=== PATIENT | male | born 1955 | race Caucasian/White ===

== ENCOUNTER → 2023-10-23 08:29 | Outpatient (REF) | payer MEDICARE, OTHER, SELFPAY | LOC: HWRAD 08:29 | PROVIDERS: ATTENDING PHYSICIAN Registered Nurse Oncology; FAMILY PHYSICIAN Family Medicine | DX: C7A.8 Other malignant neuroendocrine tumors (principal) | CPT/HCPCS: 71260; 74177; Q9967 ==

== ENCOUNTER → 2023-12-24 08:15 | Outpatient (REF) | payer MEDICARE, OTHER, SELFPAY | LOC: HWRAD 08:15 | PROVIDERS: ATTENDING PHYSICIAN Registered Nurse Oncology; FAMILY PHYSICIAN Family Medicine | DX: C7A.8 Other malignant neuroendocrine tumors (principal) | CPT/HCPCS: 71260; 74177; Q9967 ==

== ENCOUNTER 2024-04-15 00:38 | Observation (INO) | payer MEDICARE, OTHER, SELFPAY ==
[2024-04-14 18:19] VITALS: BP 131/79
--- NOTE | 2024-04-14 19:26 | ED.GENMED ---
History of Present Illness
General
Chief Complaint: Bowel Problem
Source: patient
Exam Limitations: none
Time Seen by Provider: 04/14/24 18:44
History of Present Illness
History of Present Illness:
This is a 68 year old male that comes in with c/o constipation. States that he has not had a BM in the past 1.5 weeks. State that he has tried enemas, stool softeners and his has tried removing some to the stool. States that he gets radiation
IV treatments every 8 weeks. States that you don't eat after them but he has just started to eat again and he can't go. States that he feels Dizzy when he tried to push. States that sometimes the stool just drips out. Denies any fever, chills,
chest pain, SOB, abd pain, nausea, vomiting, headache, urinary burning.
Past History
Past History
ED Past Medical History: Cancer (Neuroendorcine Cancer), HTN, Hypercholesterolemia and Other (Eczema)
ED Past Surgical History: Appendectomy, Cholecystectomy and Other (Whipple procedure. Splenectomy, )
Social History
Tobacco: Former smoker
Alcohol: None
Personal:
Living: with family
Employment: Employed
Review of Systems
Review of Systems
All Other Systems: ROS reviewed and negative except as documented in HPI and ROS
Constitutional: Reports no symptoms; Denies fever or chills
EENT: Reports no symptoms
Respiratory: Reports no symptoms; Denies cough or trouble breathing
Cardiac: Reports no symptoms; Denies chest pain
ABD/GI: Reports constipated; Denies abdominal pain, nausea, vomiting or diarrhea
: Reports no symptoms; Denies dysuria, frequency or urgency
Musculoskeletal: Reports no symptoms
Skin: Reports no symptoms
Neurological: Denies dizzy (when pushes to have a BM) or headache
Psychiatric: Reports no symptoms
Phy Exam
General Physical Exam
General Presentation: no apparent distress
General age: appears stated age
General Skin: warm and dry
General Habitus: normal
General Mental: alert
General Hydration: dry mucous membranes
ENT Exam
ENT Exam: TM's normal, pharynx normal and neck supple
Eye Exam
Eye Exam: EOMI
Cardiovascular Exam
Cardiovascular Exam: regular rate/rhythm and normal peripheral pulses
Pulmonary Exam
Pulmonary Exam: lungs clear, no respiratory distress, no rales, chest non tender, no crackles, no rhonchi, no wheezing and no cough
Gastrointestinal Exam
Gastrointestinal Exam: soft, no organomegaly, no pulsatile mass, non distended and tender (hypoactive bowel sounds, Slight LLQ tenderness with palpation)
Musculoskeletal Exam
Musculoskeletal Exam: full ROM and edema (+2 pitting edema)
Skin Exam
Skin Exam: normal color, warm/dry, no petechia and other (Eczema all over body, )
Psychiatric Exam
Psychiatric Exam: normal mood/affect
Course
Orders/Labs/Results
Orders:
Orders
04/14/24 19:25
0.9% Sodium Chloride 1000 ml [Nss] 1,000 ml IV BOLUS
Iohexol [Omnipaque] See Protocol PO NOW STA
04/14/24 19:26
CT Abd/pel W Iv And Oral Contr Urgent
Comment:
Reason For Exam: Constipation, Left sided tenderness
04/14/24 19:57
Complete Blood Count/With Diff Urgent
Comprehensive Metabolic Panel Urgent
Abnormal Lab Results
04/14/24
19:57
WBC 13.3 H 10^3/uL
(4.8-10.8)
RBC 3.75 L 10^6/uL
(4.70-6.10)
Hgb 11.3 L g/dL
(13.0-18.0)
Hct 33.1 L %
(39.0-52.0)
RDW 15.0 H %
(11.5-14.5)
Abs Immat Gran (auto) 0.1 H 10^3/uL
(0-0.05)
Absolute Neuts (auto) 11.9 H 10^3/uL
(1.4-6.5)
Absolute Lymphs (auto) 0.6 L 10^3/uL
(1.2-3.4)
Absolute Monos (auto) 0.7 H 10^3/uL
(0.1-0.6)
Neutrophils % 89.2 H %
(42.2-75.2)
Lymphocytes % 4.7 L %
(20.5-51.1)
Creatinine 0.4 L mg/dL
(0.7-1.3)
Glucose 218 H mg/dl
(70-99)
Total Protein 5.4 L g/dl
(6.3-8.2)
Albumin 3.2 L g/dl
(3.5-5.0)
04/14/24 19:57
04/14/24 19:57
Leukocytosis, H/h slightly low. Hyperglycemia, total protein low. Albumin slightly low. Lipase normal 125
Vital Signs
Initial and Last Documented VS:
Initial Vital Signs
Temp Pulse Resp BP Pulse Ox
97.6 F 102 18 131/79 96
04/14/24 18:19 04/14/24 18:19 04/14/24 18:19 04/14/24 18:19 04/14/24 18:19
Last Documented Vital Signs
Temp Pulse Resp BP Pulse Ox
97.6 F 90 18 138/71 97
04/14/24 18:19 04/14/24 20:00 04/14/24 20:00 04/14/24 20:00 04/14/24 20:00
MDM/Problems Addressed
Differential Diagnosis Includes:
constipation,
MDM/Problems Addressed:
This is a 68 year old male that comes in with c/o constipation. States that he has not had a BM in the past 1.5 weeks. Patient has had Radiation IV therapy every 8 weeks.
Will get labs and CT scan.
Back into see patient. Explained that his CT shows several things. There is some inflammation in the upper abd in the stomach that could be gastritis or a developing ulcer. There is also constipation and Proctitis with possible developing abscess.
Will admit patient and start on IV antibiotics. Hospitalist notified.
Chronic conditions affecting care: Cancer
Acute Exacerbation and/or Progression of Chronic Illness: Cancer
*Radiology
Radiology exam reviewed: radiology read reviewed (CT night hawk-Inflammatory changes in the right upper quadrante near the distal stomach and proximal duodenum, suggesting gastritis and duodenitis or occult peptic ulcer disease. Large amount of
solid stool in the colon from the cecum to the splenic flexure. Inflammatory changes of the rectum, ), all reviewed NAD by ED Provider (CT cont-suggestive or proctitis. Trace loculated fluid in the perianal soft tissues, possible representing a
developing abscess. Ventral hernias containing small bowel, without evidence for associated complication. Redemonstrated metastatic disease in the liver. Changes of distal pancreatectomy and ) and other (CT cont- splenectomy. Small cystic appearing
lesion again seen in the uncinate process of the pancreas. )
*Pulse Oximetry
Patient hypoxic: no
*EKG
Interpreted by ED Provider?: NA
Rate: EKG- N/A
*French Teacher Interpretation
Rate: French Teacher- N/A
*Critical Care Note
Total Time (30-74mins, 75-104mins- exclusive of procedures): Not Applicable
ED Attending Note
-
Portions of this chart may have been created with voice recognition software.� Occasional wrong word or��sound alike� substitutions may have occurred due to the inherent limitations of voice recognition software.
Discharge Plan
Departure
Patient Disposition: Admit
Date of Disposition: 04/14/24
Time of Disposition: 23:59
Admit to: Med/Surg
Presentation/result/management discussed w/ accepting MD/DO: Hospitalist
Patient with high blood pressure during this ER visit?: Yes
Condition: Good
Covid-19: Not Applicable
Discharge Problem:
Proctitis with developing abscess, Gastritis Vs Pepcic ulcer , Acute constipation
Prescriptions:
No Action
multivitamin [Multi-Day] 1 EACH tablet
1 ea PO DAILY
aspirin [Adult Low Dose Aspirin] 81 MG tablet,delayed release (DR/EC)
81 mg PO DAILY
simvastatin 40 MG tablet
40 mg PO DAILY
lisinopril-hydrochlorothiazide 1 EACH tablet
1 ea PO DAILY
Referrals:
Lilly Kumar DO [Family Provider] -
Interventions
Interventions:
*Risk Screen - Suicide Last Done: 04/14/24 18:19
*General Assessment Last Done: 04/14/24 18:19
*Neglect/Abuse Screening Last Done: 04/14/24 18:19
ED- Fall Risk Assessment Last Done: 04/14/24 21:43
*ED COVID-19 Vaccine History Last Done: 04/14/24 18:19
KZ-Kvhwzx-Ozuefvcjfp Assessment Last Done: 04/14/24 19:35
Discharge Date and Time
Print Language: TURKISH
[2024-04-14 19:35] VITALS: BMI 23.4
[2024-04-14] MEDS: OMNIPAQUE 50 ML PO (19:37)
[2024-04-14] MEDS: NSS 1000 IV (19:58)
[2024-04-14 20:00] VITALS: BP 138/71
[2024-04-14 20:15] LABS: % Basophils 0.3 % (0-2); % Immature Granulocytes 0.5 % (0-0.5); % Lymphocytes 4.7 % (20.5-51.1); % Monocytes 5.3 % (1.7-9.3); % Neutrophils 89.2 % (42.2-75.2); Absolute Immature Granulocytes 0.1 10^3/uL (0-0.05); Absolute Lymphocytes 0.6 10^3/uL (1.2-3.4); Absolute Monocytes 0.7 10^3/uL (0.1-0.6); Absolute Neutrophils 11.9 10^3/uL (1.4-6.5); Hematocrit 33.1 % (39.0-52.0); Hemoglobin 11.3 g/dL (13.0-18.0); Mean Corp Hgb Conc. 34.1 g/dL (33.0-37.0); Mean Corpuscular Hgb 30.1 pg (27.0-31.0); Mean Corpuscular Volume 88.3 fL (80.0-94.0); Mean Platelet Volume 9.9 fL (7.4-10.4); Nucleated Red Blood Cells % 0 % (-); Platelet Count 304 10^3/uL (130-400); Red Blood Cell Count 3.75 10^6/uL (4.70-6.10); White Blood Cell Count 13.3 10^3/uL (4.8-10.8)
[2024-04-14 20:29] LABS: ALT (SGPT) 22 U/L (0-50); AST (SGOT) 30 U/L (17-59); Albumin 3.2 g/dl (3.5-5.0); Alkaline Phosphatase 99 U/L (38-126); Blood Urea Nitrogen 16 mg/dl (9-20); Calcium 9.6 mg/dl (8.4-10.2); Carbon Dioxide 25 mmol/L (22-30); Chloride 106 mmol/L (98-107); Estimated Creatinine Clearance 110 ml/min; Glucose 218 mg/dl (70-99); Potassium 4.4 mmol/L (3.5-5.1); Sodium 139 mmol/L (135-145); Total Bilirubin 0.6 mg/dl (0.2-1.3); Total Protein 5.4 g/dl (6.3-8.2); eGFR > 60.00
[2024-04-15] MEDS: PROTONIX IV 40 MG IV (00:11)
[2024-04-15] MEDS: ZOSYN 50 IV (00:12)
--- NOTE | 2024-04-15 00:30 | HPS.HSE ---
Family Physician
-
Family Physician: Lilly Kumar
Chief Complaint
-
Constipation
History of Present Illness
This is a 68-year-old male with history of neuroendocrine tumor involving the liver with status post partial resection of the pancreas and removal of the gallbladder several years ago and is currently on Lutathera therapy who comes in with history
of about 2 weeks of worsening constipation. He does have a history of constipation in the past for which he has been intermittently on laxatives.
Patient reports that he had his last dose of the chemotherapy (Lutathera) on February 27 with next dose 8 weeks after that. He reports initially having a decreased appetite but now reports in the last 4 weeks he has had normal appetite. He has unable
to tolerate p.o. despite the constipation. He reports that he last had a bowel movement about a week ago. He reports some discomfort with attempted bowel movement. Today's spouse attempted disimpaction and was able to remove a small amount of
stool in that way. However he still felt some discomfort and decided come to the emergency department. He had also tried enema at home but it was not successful due to lack of space for placement.
Patient denies any nausea or vomiting. He denies any abdominal pain at rest. He denies having any fevers or chills. He reports that he has had worsening of his eczema secondary to his chemo but otherwise denies any other intercurrent illness.
Denies opioid use.
On arrival in the emergency department he was afebrile, hemodynamically stable with normal oxygen saturation and well-appearing. He had a mild leukocytosis to 13,000 with a normal platelet count and CBC. Chemistries are within normal limits.
A CT of the abdomen pelvis showed constipation without obstruction with a moderate to large amount of fecal burden starting from the cecum to the sigmoid colon. There was mild proctitis. He did have known liver lesions as well as a supra umbilical
hernia without obstruction or incarceration. A [facility] read shows some discrepancy with more significant proctitis and possibly early abscess. Patient was given Zosyn in the emergency department.
There was an attempted disimpaction but the immediate vault was empty.
Medical History
Past Medical History
Past Medical History: Reports Cancer (Neuroendocrine tumor ) and HTN
Additional Past Medical History:
ECZEMA
Past Surgical History: Reports Cholecystectomy and Other (Partial pancreatectomy)
Social History
Tobacco: Non-smoker
Alcohol: None
Drug: None
Personal:
Living: With Family
Employment: Employed
Family History
Family History: Not pertinent
Allergies / Home Medications
Allergies reflects when Allergies were last updated in [facility].
Home Medications with original date entered in [facility]
Allergy/Medication List:
Allergies
Allergy/AdvReac Type Severity Reaction Status Date / Time
No Known Allergies Allergy Unverified 11/22/15 16:53
Home Medications
aspirin 81 mg tablet,delayed release (Adult Low Dose Aspirin) 81 mg PO DAILY 11/22/15
lisinopril 20 mg-hydrochlorothiazide 25 mg tablet 1 ea PO DAILY 11/22/15
multivitamin (Multi-Day tablet) 1 ea PO DAILY 11/22/15
simvastatin 40 mg tablet 40 mg PO DAILY 11/22/15
Review of Systems
-
History Source: Patient
Constitutional: Reports No Symptoms
EENT: Reports No Symptoms
Respiratory: Reports No Symptoms
Cardiac: Reports No Symptoms
Abdomen/GI: Reports Constipated
: Reports No Symptoms
Musculoskeletal: Reports No Symptoms
Skin: Reports No Symptoms
Neurological: Reports No Symptoms
Endocrine: Reports No Symptoms
Hematologic/Lymphatic: Reports No Symptoms
Psych: Reports No Symptoms
Physical Exam
Vital Signs
Vital Signs
Temp Pulse Resp BP Pulse Ox
97.6 F 90 18 138/71 97
04/14/24 18:19 04/14/24 20:00 04/14/24 20:00 04/14/24 20:00 04/14/24 20:00
Physical Exam
General: Well Developed and No Apparent Distress
HEENT: NormoCephalic, Anicteric, Moist mucous membranes and Atraumatic
Respiratory: Clear
Cardiac: S1/S2 and Regular Rhythm
Breast: Deferred by me
GI: Soft, Non Tender, Non Distended and Normal Bowel Sounds
Rectal: Deferred by Provider
Genito-urinary: Deferred by me
Musculoskeletal: No Clubbing, No Cyanosis and No Edema
Skin: Rash
Hematologic/Lymphatic: No Lymphadenopathy
Psych: Calm
Laboratory Results
-
04/14/24 19:57
04/14/24 19:57
Laboratory Results
Total Bilirubin 0.6 mg/dl (0.2-1.3) 04/14/24 19:57
AST 30 U/L (17-59) 04/14/24 19:57
ALT 22 U/L (0-50) 04/14/24 19:57
Alkaline Phosphatase 99 U/L (38-126) 04/14/24 19:57
Data Reviewed
-
CT Scan: Report Reviewed by me
Lab Data: Labs Reviewed by me
Old Records: Reviewed
Impression/Plan
-
IMPRESSION:
Patient w/ h/o NET tumor with liver lesions presents to ED w/ recurrent constipation. Has a large stool burden on CT scan with likely recent impaction. Partially succesful disimpaction at home but no success in ED. Discrepant reports on CT scan.
Night hawk reporting possible early abscess but the radiologist read here was negative showing only mild proctitis and large fecal burden. No intestinal obstruction. Given zosyn in ED.
PLAN:
1. Constipation -Patient with constipation with mild proctitis. I do not see signs of abscess or infection at this time.
- admit to med/surg observation
- s/p zosyn in ED, hold further abx and monitor
- start bowel prep with mag citrate q 4 hours x 3 till bm, then bid Milk of Mag if no bm
- fleet-mineral oil enema
- continue miralax daily and prn for now
- regular diet as tolerated and advance
- anti-emetics prn.
2. Eczema - He is being followed by outpatient dermatology. Was on a steroid cream but not currently
- cream prn itching.
3. HTN -
- continue losartan 50 and metop sucinate 50 daily
DVT PPX - lovenox sq
Full Code
[2024-04-15] MEDS: CITROMA 300 ML PO ×2 (01:58→06:00)
[2024-04-15] MEDS: FLEET MINERAL OIL ENEMA 133 ML RECTAL (01:58)
[2024-04-15 02:12] VITALS: BP 123/75
[2024-04-15] MEDS: CITROMA PO (06:30)
[2024-04-15] MEDS: ZOFRAN 4 MG IV (06:44)
[2024-04-15 07:16] VITALS: BP 133/87
[2024-04-15] MEDS: LIPITOR 20 MG PO (07:17)
[2024-04-15] MEDS: TOPROL XL 50 MG PO (07:17)
[2024-04-15] MEDS: SENOKOT-S 1 TABLET PO (07:17)
[2024-04-15] MEDS: MIRALAX 17 GRAMS PO (07:18)
[2024-04-15] MEDS: COZAAR 50 MG PO (07:18)
--- NOTE | 2024-04-15 09:55 | W.PN.HOSP.TC ---
Today's Communication/Plan
-
OK for discharge today
Assessment / Plan
Assessment / Plan
IMPRESSION:
Patient w/ h/o NET tumor with liver lesions presents to ED w/ recurrent constipation. Has a large stool burden on CT scan with likely recent impaction. Partially succesful disimpaction at home but no success in ED. Discrepant reports on CT scan.
Night hawk reporting possible early abscess but the radiologist read here was negative showing only mild proctitis and large fecal burden. No intestinal obstruction. Given zosyn in ED.
CT A/P
IMPRESSION:
Constipation with moderate to large fecal burden. No evidence of bowel obstruction.
Possible mild proctitis in the proper clinical setting.
Numerous intrahepatic space-occupying lesions are again demonstrated, consisting of solid/metastatic and cystic lesions. Relatively stable.
Stable 1.3 cm hypodensity along left lateral margin of the pancreatic uncinate process.
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 No evidence of bowel obstruction or incarceration.
PLAN:
1. Constipation -no signs of abscess or infection at this time (forma lCT read with possible mild proctitis, no abscess)
- s/p zosyn in ED, hold further abx and monitor
-s/p mag citrate with relief
-OK for discharge
- continue miralax daily and extra prn
2. Eczema - He is being followed by outpatient dermatology. Was on a steroid cream but not currently
- cream prn itching.
3. HTN -
- continue losartan 50 and metop sucinate 50 daily
DVT PPX - lovenox sq
Full Code
Anticipated Discharge: Today
Subjective/Interval History
-
Date of Service: April 15, 2024
status post multiple bowel movements earlier today and feeling a lot better
no abdominal pain
no fever
wants to go home
Objective Data
-
Vital Signs:
Vital Signs
Temp Pulse Resp BP Pulse Ox
97.8 F 88 18 133/87 99
04/15/24 07:16 04/15/24 07:16 04/15/24 07:16 04/15/24 07:16 04/15/24 07:16
Review of Systems
-
History Source: Patient
All other systems: Reviewed and negative
Physical Exam
-
General: No Apparent Distress and Conversant
HEENT: PERRLA
Respiratory: Clear to Auscultation; Negative Wheezes
Cardiac: Regular Rhythm and S1/S2
GI: Soft and Nontender
Musculoskeletal: No Edema
Skin: Warm and Dry; Negative Rash
Neuro: AO x 3
Psych: Calm
Data Reviewed
-
Diagnostic Radiology: Report Reviewed by me
Labs: Labs Reviewed by me
[2024-04-15 10:50] LABS: % Basophils 0.2 % (0-2); % Eosinophils 0.8 % (0-6); % Immature Granulocytes 0.5 % (0-0.5); % Lymphocytes 7.7 % (20.5-51.1); % Monocytes 7.5 % (1.7-9.3); % Neutrophils 83.3 % (42.2-75.2); Absolute Eosinophils 0.1 10^3/uL (0-0.7); Absolute Immature Granulocytes 0.1 10^3/uL (0-0.05); Absolute Neutrophils 11.1 10^3/uL (1.4-6.5); Hematocrit 33.5 % (39.0-52.0); Hemoglobin 11.5 g/dL (13.0-18.0); Mean Corp Hgb Conc. 34.3 g/dL (33.0-37.0); Mean Corpuscular Hgb 29.5 pg (27.0-31.0); Mean Corpuscular Volume 85.9 fL (80.0-94.0); Mean Platelet Volume 9.5 fL (7.4-10.4); Nucleated Red Blood Cells % 0 % (-); Platelet Count 318 10^3/uL (130-400); Red Cell Dist. Width 15.2 % (11.5-14.5); White Blood Cell Count 13.3 10^3/uL (4.8-10.8)
[2024-04-15 10:54] LABS: Blood Urea Nitrogen 12 mg/dl (9-20); Calcium 8.9 mg/dl (8.4-10.2); Carbon Dioxide 22 mmol/L (22-30); Chloride 105 mmol/L (98-107); Estimated Creatinine Clearance 110 ml/min; Glucose 205 mg/dl (70-99); Magnesium 2.4 mg/dl (1.6-2.3); Potassium 4.5 mmol/L (3.5-5.1); Sodium 137 mmol/L (135-145); eGFR > 60.00
--- NOTE | 2024-04-15 12:27 | W.DS.TRANS ---
DC Summary - Xray Tech
-
Discharge Instructions:
Discharge Diagnosis/Procedures constipation
Diet Regular
Activity As tolerated
Driving Restrictions As prior to admission
Bathing Restrictions None
Instructions:
Stand-Alone Forms:
Changes to Home Medications: No
Discharge Medications:
DC Medications w/original date entered in [facility]
losartan 50 mg tablet 50 mg PO DAILY Blood Pressure 04/15/24
metoprolol succinate 50 mg tablet,extended release 24 hr (Toprol XL) 50 mg PO DAILY Blood Pressure 04/15/24
ondansetron HCl 8 mg tablet 8 mg PO Q8HPRN PRN nausea-chemo treatment 04/15/24
polyethylene glycol 3350 17 gram oral powder packet (HealthyLax) 17 g PO DAILY #0 ea 04/15/24
simvastatin 20 mg tablet (Zocor) 20 mg PO DAILY High Cholesterol 04/15/24
therapeutic multivitamin 1 tab PO DAILY Supplement 04/15/24
Home Medication Changes
Pending Results: No
[2024-04-15 12:51] VITALS: BP 125/70
--- NOTE | 2024-04-15 13:19 | CM ---
CM reviewed medical records. Plan for discharge today. NO needs noted.
PLAN: Home no needs.
--- NOTE | 2024-04-15 13:49 | W.DCSUMMARY ---
Discharge Summary
Discharge Data
Date of Admission: 04/15/24
Date of Discharge: 04/15/24
-
Pending Results: No
Hospital Course
Discharging Physician : Dr. Rehana Edmondson
Disposition : Home
Primary care physician : Dr. Lilly Kumar
Principal Discharge diagnosis : Constipation
Hospital Course :
Mr. Jesse Castellanos is a 68 yo man with hx neuroendocrine tumor involving the liver status post partial resection of the pancreas and removal of the gallbladder several years ago and is currently on Lutathera therapy who comes in with history of about
2 weeks of worsening constipation. He does have a history of constipation in the past for which he has been intermittently on laxatives. Triage vitals stable, labs with WBC 13. CT A/P results below, showing moderate to large amount of fecal
burden.
He was admitted to observation and given a bowel regimen with Colace, Senna, Miralax and Mag citrate. He had multiple BM and felt much improved without any abdominal pain.
He is told to take Miralax daily at home and can take twice a day as needed. He will follow up closely with outpatient physicians.
Time spent on discharge was 31 minutes.
Important imaging findings :
CT A/P
IMPRESSION:
Constipation with moderate to large fecal burden. No evidence of bowel obstruction.
Possible mild proctitis in the proper clinical setting.
Numerous intrahepatic space-occupying lesions are again demonstrated, consisting of solid/metastatic and cystic lesions. Relatively stable.
Stable 1.3 cm hypodensity along left lateral margin of the pancreatic uncinate process.
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 No evidence of bowel obstruction or incarceration.
Procedure findings :
Discharge Plan
-
Patient Disposition: Home (Routine Discharge)
Discharge Diagnosis/Procedures: constipation
Condition: Good
Diet: Regular
Activity: As tolerated
Driving Restrictions: As prior to admission
Bathing Restrictions: None
Referrals:
Lilly Kumar, DO [Family Provider] - in less than 1 week
Prescriptions:
New
polyethylene glycol 3350 [HealthyLax] 17 gram Powder In Packet
17 g PO DAILY Qty: 0 0RF
Rx Instructions:
can increase to twice a day for constipation
Continued
losartan 50 mg Tablet
50 mg PO DAILY
metoprolol succinate [Toprol XL] 50 mg Tablet Extended Release 24 Hr
50 mg PO DAILY
ondansetron HCl 8 mg Tablet
8 mg PO Q8HPRN PRN (Reason: nausea-chemo treatment)
simvastatin [Zocor] 20 mg Tablet
20 mg PO DAILY
therapeutic multivitamin Tablet
1 tab PO DAILY
Discharge Orders:
Discharge Patient (As Directed); Ordered 04/15/24
Ordered By: Rehana Edmondson
Discharge Date and Time
Discharge Date/Time: 04/15/24 13:42
Print Language: PARAGUAYAN
== END 2024-04-15 13:42 | disposition home or self-care (01) ==
LOC: ED 00:38
PROVIDERS: Clinical Nurse Specialist Family Health; ADMITTING PHYSICIAN Internal Medicine; ATTENDING PHYSICIAN Student in an Organized Health Care Education/Training Program; EMERGENCY PHYSICIAN Emergency Medicine; FAMILY PHYSICIAN Family Medicine
DX: K59.09 Other constipation (principal); R42 Dizziness and giddiness; C7A.8 Other malignant neuroendocrine tumors; K42.9 Umbilical hernia without obstruction or gangrene; L30.9 Dermatitis, unspecified; K76.9 Liver disease, unspecified; R10.9 Unspecified abdominal pain; K62.89 Other specified diseases of anus and rectum; E78.00 Pure hypercholesterolemia, unspecified; I10 Essential (primary) hypertension; D72.829 Elevated white blood cell count, unspecified; R73.9 Hyperglycemia, unspecified; Z90.49 Acquired absence of other specified parts of digestive tract; Z87.891 Personal history of nicotine dependence; Z92.3 Personal history of irradiation; Z92.21 Personal history of antineoplastic chemotherapy; Z90.411 Acquired partial absence of pancreas; Z79.82 Long term (current) use of aspirin
CPT/HCPCS: 74177; 80048; 80053; 83735; 85025; G0378; Q9967

== ENCOUNTER → 2024-05-07 07:20 | Outpatient (REF) | payer MEDICARE, OTHER, SELFPAY ==
[2024-05-07 10:07] LABS: Blood Urea Nitrogen 18 mg/dl (9-20); Calcium 9.2 mg/dl (8.4-10.2); Carbon Dioxide 23 mmol/L (22-30); Chloride 106 mmol/L (98-107); Glucose 220 mg/dl (70-99); Potassium 4.2 mmol/L (3.5-5.1); Sodium 140 mmol/L (135-145); eGFR > 60.00
[2024-05-07 12:23] LABS: Glycohemoglobin (HgbA1c) 8.5 % (4.0-5.6)
== END ==
LOC: HWLAB 07:20
PROVIDERS: ATTENDING PHYSICIAN Family Medicine
DX: R73.09 Other abnormal glucose (principal)
CPT/HCPCS: 36415; 80048; 83036

== ENCOUNTER → 2024-07-22 08:13 | Outpatient (REF) | payer MEDICARE, OTHER, SELFPAY ==
[2024-07-22 10:17] LABS: HDL Cholesterol 79 mg/dl; LDL Cholesterol, Calculated 79 mg/dl; Potassium 4.5 mmol/L (3.5-5.1); Total Cholesterol 186 mg/dl (50-199); Triglyceride 141 mg/dl (10-149); Very Low Density Lipoprotein 28 mg/dl (0-30)
[2024-07-22 10:40] LABS: PSA, Total - Screen 0.81 ng/ml (0.0-4.0)
== END ==
LOC: HWLAB 08:13
PROVIDERS: ATTENDING PHYSICIAN Family Medicine
DX: Z12.5 Encounter for screening for malignant neoplasm of prostate (principal); E87.6 Hypokalemia; E78.00 Pure hypercholesterolemia, unspecified
CPT/HCPCS: 36415; 80061; 84132; G0103

== ENCOUNTER → 2024-08-25 06:30 | Outpatient (REF) | payer MEDICARE, OTHER, SELFPAY ==
[2024-08-25 09:38] LABS: Blood Urea Nitrogen 17 mg/dl (9-20); Calcium 9.2 mg/dl (8.4-10.2); Carbon Dioxide 27 mmol/L (22-30); Chloride 101 mmol/L (98-107); Glucose 237 mg/dl (70-99); Potassium 5.6 mmol/L (3.5-5.1); Sodium 135 mmol/L (135-145); eGFR > 60.00
[2024-08-25 10:23] LABS: Glycohemoglobin (HgbA1c) 12.6 % (4.0-5.6)
== END ==
LOC: HWLAB 06:30
PROVIDERS: ATTENDING PHYSICIAN Family Medicine
DX: E11.9 Type 2 diabetes mellitus without complications (principal)
CPT/HCPCS: 36415; 80048; 83036

== ENCOUNTER → 2024-10-13 09:36 | Outpatient (REF) | payer MEDICARE, OTHER, SELFPAY | LOC: RAD 09:36 | PROVIDERS: ATTENDING PHYSICIAN Nurse Practitioner Adult Health; FAMILY PHYSICIAN Family Medicine | DX: C25.4 Malignant neoplasm of endocrine pancreas (principal) | CPT/HCPCS: 71260; 74177; Q9967 ==

== ENCOUNTER → 2024-12-24 07:27 | Outpatient (REF) | payer MEDICARE, OTHER, SELFPAY ==
[2024-12-24 09:47] LABS: % Basophils 0.5 % (0-2); % Immature Granulocytes 0.4 % (0-0.5); % Monocytes 14.9 % (1.7-9.3); % Neutrophils 52.2 % (42.2-75.2); Absolute Eosinophils 0.2 10^3/uL (0-0.7); Absolute Lymphocytes 1.6 10^3/uL (1.2-3.4); Absolute Monocytes 0.8 10^3/uL (0.1-0.6); Hematocrit 36.3 % (39.0-52.0); Hemoglobin 12.4 g/dL (13.0-18.0); Mean Corp Hgb Conc. 34.2 g/dL (33.0-37.0); Mean Corpuscular Hgb 33.2 pg (27.0-31.0); Mean Corpuscular Volume 97.1 fL (80.0-94.0); Mean Platelet Volume 9.7 fL (7.4-10.4); Nucleated Red Blood Cells % 0 % (-); Platelet Count 269 10^3/uL (130-400); Red Blood Cell Count 3.74 10^6/uL (4.70-6.10); Red Cell Dist. Width 14.6 % (11.5-14.5); White Blood Cell Count 5.7 10^3/uL (4.8-10.8)
[2024-12-24 09:50] LABS: ALT (SGPT) 17 U/L (0-50); AST (SGOT) 21 U/L (17-59); Albumin 3.7 g/dl (3.5-5.0); Alkaline Phosphatase 76 U/L (38-126); Blood Urea Nitrogen 17 mg/dl (9-20); Calcium 9.8 mg/dl (8.4-10.2); Carbon Dioxide 26 mmol/L (22-30); Chloride 109 mmol/L (98-107); Glucose 194 mg/dl (70-99); Potassium 4.6 mmol/L (3.5-5.1); Sodium 140 mmol/L (135-145); Total Bilirubin 0.5 mg/dl (0.2-1.3); eGFR > 60.00
[2024-12-24 11:37] LABS: Glycohemoglobin (HgbA1c) 8.3 % (4.0-5.6)
[2024-12-26 17:23] LABS: Chromogranin A 374 ng/mL (0-187)
== END ==
LOC: HWLAB 07:27
PROVIDERS: ATTENDING PHYSICIAN Specialist; FAMILY PHYSICIAN Family Medicine
DX: E11.65 Type 2 diabetes mellitus with hyperglycemia (principal); D3A.8 Other benign neuroendocrine tumors
CPT/HCPCS: 36415; 80053; 83036; 85025; 86316

== ENCOUNTER → 2025-01-26 08:15 | Outpatient (REF) | payer MEDICARE, OTHER, SELFPAY | LOC: RAD 08:15 | PROVIDERS: ATTENDING PHYSICIAN Specialist; FAMILY PHYSICIAN Family Medicine | DX: D3A.8 Other benign neuroendocrine tumors (principal) | CPT/HCPCS: 74177; Q9967 ==

== ENCOUNTER → 2025-04-10 07:17 | Outpatient (REF) | payer MEDICARE, OTHER, SELFPAY ==
[2025-04-10 10:03] LABS: Blood Urea Nitrogen 13 mg/dl (9-20); Calcium 9.7 mg/dl (8.4-10.2); Carbon Dioxide 27 mmol/L (22-30); Chloride 103 mmol/L (98-107); Glucose 159 mg/dl (70-99); Potassium 4.6 mmol/L (3.5-5.1); Sodium 137 mmol/L (135-145); eGFR > 60.00
[2025-04-10 11:16] LABS: Glycohemoglobin (HgbA1c) 6.7 % (4.0-5.6)
== END ==
LOC: HWLAB 07:17
PROVIDERS: ATTENDING PHYSICIAN Specialist; FAMILY PHYSICIAN Family Medicine
DX: E11.65 Type 2 diabetes mellitus with hyperglycemia (principal); D3A.8 Other benign neuroendocrine tumors
CPT/HCPCS: 36415; 80048; 83036; 86316

== ENCOUNTER → 2025-07-08 08:43 | Outpatient (REF) | payer MEDICARE, OTHER, SELFPAY ==
[2025-07-08 09:30] LABS: Hematocrit 41.3 % (39.0-52.0); Hemoglobin 13.7 g/dL (13.0-18.0); Mean Corp Hgb Conc. 33.2 g/dL (33.0-37.0); Mean Corpuscular Volume 95.8 fL (80.0-94.0); Nucleated Red Blood Cells % 0 % (-); Platelet Count 307 10^3/uL (130-400); Red Cell Dist. Width 15.3 % (11.5-14.5)
[2025-07-08 10:10] LABS: Microalb - Urine Creatinine 37.200 mg/dl
[2025-07-08 10:10] LABS: ALT (SGPT) 20 U/L (0-50); AST (SGOT) 27 U/L (17-59); Albumin 4.5 g/dl (3.5-5.0); Alkaline Phosphatase 97 U/L (38-126); Blood Urea Nitrogen 13 mg/dl (9-20); Calcium 9.8 mg/dl (8.4-10.2); Carbon Dioxide 28 mmol/L (22-30); Chloride 101 mmol/L (98-107); Glucose 136 mg/dl (70-99); HDL Cholesterol 91 mg/dl; LDL Cholesterol, Calculated 81 mg/dl; Potassium 5.4 mmol/L (3.5-5.1); Sodium 134 mmol/L (135-145); Total Protein 6.9 g/dl (6.3-8.2); Very Low Density Lipoprotein 11 mg/dl (0-30); eGFR > 60.00
[2025-07-08 10:15] LABS: Microalbumin, Random Urine 1.2 mg/dl (0.6-1.7)
[2025-07-08 10:57] LABS: ALT (SGPT) 21 U/L (0-50); AST (SGOT) 27 U/L (17-59); Albumin 4.4 g/dl (3.5-5.0); Alkaline Phosphatase 94 U/L (38-126); Blood Urea Nitrogen 13 mg/dl (9-20); Calcium 10.0 mg/dl (8.4-10.2); Carbon Dioxide 26 mmol/L (22-30); Chloride 103 mmol/L (98-107); Glucose 137 mg/dl (70-99); Potassium 5.4 mmol/L (3.5-5.1); Sodium 135 mmol/L (135-145); Total Protein 7.0 g/dl (6.3-8.2); eGFR > 60.00
[2025-07-08 12:14] LABS: Glycohemoglobin (HgbA1c) 6.2 % (4.0-5.9)
== END ==
LOC: REG 08:43
PROVIDERS: FAMILY PHYSICIAN Family Medicine
DX: D3A.8 Other benign neuroendocrine tumors (principal); E11.65 Type 2 diabetes mellitus with hyperglycemia; E78.00 Pure hypercholesterolemia, unspecified; C7A.8 Other malignant neuroendocrine tumors; I10 Essential (primary) hypertension
CPT/HCPCS: 36415; 80053; 80061; 82043; 82570; 83036; 85025; 86316

== ENCOUNTER → 2025-07-20 09:28 | Outpatient (REF) | payer MEDICARE, OTHER, SELFPAY | LOC: RAD 09:28 | PROVIDERS: ATTENDING PHYSICIAN Registered Nurse Oncology; FAMILY PHYSICIAN Family Medicine | DX: D3A.8 Other benign neuroendocrine tumors (principal) | CPT/HCPCS: 74177; Q9967 ==